=== PATIENT | male | born 1950 | race Caucasian/White ===

== ENCOUNTER 2016-06-23 17:24 | Emergency (ER) | payer OTHER ==
[~2016-06-23] VITALS: Ht 175.3 cm; Wt 83.9 kg
[~2016-06-23 17:24] MED LIST: ALLOPURINOL300 MG PO; DIOVAN80 MG PO; TOPROL XL100 MG PO
[2016-06-23] MEDS ORDERED: HALFPRIN81 MG PO (17:50)
== END 2016-06-23 17:45 | disposition short-term general hospital (02) ==
LOC: ER 17:24
DX: M79.81 Nontraumatic hematoma of soft tissue (principal); Z79.82 Long term (current) use of aspirin; Z79.899 Other long term (current) drug therapy